=== PATIENT | female | born 2000 | race Two or more races ===

== ENCOUNTER 2024-05-31 05:44 | Emergency (ER) | payer OTHER ==
[~2024-05-31] VITALS: Ht 154.9 cm; Wt 68.0 kg
[2024-05-31] MEDS ORDERED: FAMOTIDINE/PF 20 MG in 0.9 % SODIUM CHLORIDE 8 ML IV PUSH STA (06:07)
[2024-05-31] MEDS ORDERED: DIPHENOXYLATE HCL/ATROPINE 1 UDTAB TABLET PO ONE (06:15)
[2024-05-31] MEDS ORDERED: ONDANSETRON HCL 2 MG/ML VIAL IV ONE (06:15)
[2024-05-31] MEDS ORDERED: 0.9 % SODIUM CHLORIDE 1,000 ML IV SCH (06:15)
[2024-05-31] MEDS ORDERED: FAMOTIDINE/PF 20 MG/2 ML VIAL ONE (06:21)
[2024-05-31] MEDS ORDERED: ONDANSETRON HCL 2 MG/ML VIAL ONE (06:21)
[2024-05-31 07:37] LABS: HEMATOCRIT 39.1 % (36.0-45.00); HEMOGLOBIN 13.5 g/dL (12.0-15.00); MEAN CELL VOLUME 87.9 fL (80.00-100.00); MEAN CORPUSCULAR HEMOGLOBIN 30.4 pg (27.00-32.0); MEAN CORPUSCULAR HGB CONC 34.5 g/dl (32.0-36.0); PLATELET COUNT 286 K/uL (150-450); RED BLOOD COUNT 4.45 M/uL (4.00-6.00); RED CELL DISTRIBUTION WIDTH 13.3 % (11.5-14.5)
[2024-05-31 08:07] LABS: ALBUMIN 3.6 gm/dL (3.4-5.0); BILIRUBIN TOTAL 0.49 mg/dL (0.3-1.2); CREATININE SERUM 0.79 mg/dL (0.55-1.02); GFR 88.67; GLOBULINA 3.8 G/DL (2.4-3.5); POTASSIUM 3.84 mEq/L (3.5-5.1); TOTAL PROTEIN 7.4 gm/dL (6.4-8.2)
[2024-05-31] MEDS ORDERED: ZOFRAN8 MG PO (10:15)
[2024-05-31] MEDS ORDERED: PEPCID AC20 MG PO (10:15)
== END 2024-05-31 10:20 | disposition home or self-care (01) ==
LOC: ER 05:45
PROVIDERS: General Practice
DX: K52.9 Noninfective gastroenteritis and colitis, unspecified (principal); R11.2 Nausea with vomiting, unspecified; R11.10 Vomiting, unspecified

== ENCOUNTER 2025-02-03 10:41 | Emergency (ER) | payer OTHER ==
[~2025-02-03] VITALS: Ht 154.9 cm; Wt 70.3 kg
[~2025-02-03 10:41] MED LIST: PEPCID AC20 MG PO; ZOFRAN8 MG PO
== END 2025-02-03 11:49 | disposition home or self-care (01) ==
LOC: ER 10:42
DX: L98.9 Disorder of the skin and subcutaneous tissue, unspecified (principal); R21 Rash and other nonspecific skin eruption

== ENCOUNTER 2025-06-04 15:06 | Emergency (ER) | payer OTHER ==
[~2025-06-04] VITALS: Ht 154.9 cm; Wt 64.9 kg
[2025-06-04 19:02] LABS: BASO % 0.5 % (0.1-1.2); EOS # 0.18 (0.04-0.54); EOS % 1.7 % (0.7-7.0); LYMPH # 2.35 (1.18-3.74); LYMPH % 21.9 % (19.3-53.1); MEAN PLATELET VOLUME 9.10 fl (9.4-12.4); MONO # 0.66 (0.24-0.82); MONO % 6.2 % (4.7-12.5); NEUT # 7.45 (1.56-6.13); NEUT % 69.5 % (34.0-71.1); RED CELL DISTRIBUTION WIDTH 12.8 % (11.6-14.4)
[2025-06-04] MEDS ORDERED: NORFLEX100MG PO (21:04)
[2025-06-04] MEDS ORDERED: KETO10TA2 PO (21:04)
[2025-06-04] MEDS ORDERED: KETOROLAC TROMETHAMINE 30 MG VIAL IM ONE (21:15)
[2025-06-04] MEDS ORDERED: ORPHENADRINE CITRATE 30 MG/ML AMPUL IM ONE (21:15)
== END 2025-06-04 21:49 ==
LOC: ER 15:06
PROVIDERS: Preventive Medicine Public Health & General Preventive Medicine
DX: R07.89 Other chest pain (principal)